=== PATIENT | male | born 1985 | race African-American/Black ===

== ENCOUNTER 2017-05-02 22:58 | Emergency (ER) | payer MEDICARE, SELFPAY ==
--- NOTE | 2017-05-03 00:02 | RAD ---
THREE VIEWS RIGHT FOOT: 05/02/17 HISTORY: Right foot pain for two months. FINDINGS: Lisfranc joint is normally aligned. There is no fracture, dislocation or other osseous abnormality i nvolving the right foot. IMPRESSION: No acute osseous abnormality. POS: [facility]
== END 2017-05-03 00:17 | disposition home or self-care (01) ==
LOC: ERS 22:58
DX: S93.601A Unspecified sprain of right foot, initial encounter (principal); Z20.2 Contact with and (suspected) exposure to infections with a predominantly sexual mode of transmission; J45.909 Unspecified asthma, uncomplicated; X58.XXXA Exposure to other specified factors, initial encounter
CPT/HCPCS: 87491; 87591

== ENCOUNTER 2018-01-17 16:41 | Emergency (ER) | payer MEDICARE, SELFPAY ==
[2018-01-17] MEDS ORDERED: Ketorolac Tromethamine 30 MG/ML VIAL ONE (17:04)
--- NOTE | 2018-01-17 17:45 | RAD ---
RADIOGRAPH RIGHT ANKLE 3 VIEWS: 01/17/18 HISTORY: 32-year-old male with chronic right ankle pain. FINDINGS: Ankle mortise is symmetrical. Talar dome is maintained. There is minimal asymmetric widening of the a nterior aspect of the ankle mortise as demonstrated on the lateral view. Talar dome is maintained. No high grade degenerative changes. There is pes planus. Two small, faint calcific densities project ov er the inferior aspects of the ankle mortise bilaterally, one on each side (medial and lateral), nons pecific. IMPRESSION: 1. Pes planus. 2. Slight asymmetrical widening of the anterior aspect of the tibiotalar joint. POS: [facility]
== END 2018-01-17 18:09 | disposition home or self-care (01) ==
LOC: ERS 16:41
DX: M25.471 Effusion, right ankle (principal); J45.909 Unspecified asthma, uncomplicated
CPT/HCPCS: 96372; J1885

== ENCOUNTER 2018-06-13 21:29 | Emergency (ER) | payer SELFPAY ==
[2018-06-13] MEDS ORDERED: Ibuprofen 800 MG TAB ONE (21:41)
--- NOTE | 2018-06-13 22:06 | RAD ---
RIGHT ANKLE: 06/13/18 Three views. INDICATIONS: Ankle pain. Mild soft tissue swelling. No fracture. No osseous abnormality identified. IMPRESSION: No evidence of acute osseous abnormality. POS: [facility]
== END 2018-06-13 22:27 | disposition home or self-care (01) ==
LOC: ERS 21:29
DX: M25.571 Pain in right ankle and joints of right foot (principal); X50.1XXA Overexertion from prolonged static or awkward postures, initial encounter

== ENCOUNTER 2018-07-10 16:35 | Emergency (ER) | payer SELFPAY ==
[2018-07-10] MEDS ORDERED: Adacel (T-DAP) 0.5 ML SYRINGE ONE (17:13)
[2018-07-10] MEDS ORDERED: Bacitracin Zinc 1 Packet ONE (17:13)
== END 2018-07-10 17:25 | disposition home or self-care (01) ==
LOC: ERS 16:35
DX: S61.411A Laceration without foreign body of right hand, initial encounter (principal); W26.0XXA Contact with knife, initial encounter
CPT/HCPCS: 90471; 90715

== ENCOUNTER 2018-09-28 16:39 | Emergency (ER) | payer SELFPAY ==
--- NOTE | 2018-09-28 17:18 | RAD ---
RIGHT ANKLE THREE VIEWS: 09/28/18 HISTORY: Right ankle pain. FINDINGS/IMPRESSION: Comparison made with exam of 06/13/18. No acute fracture or dislocation seen. The ankle mortise is maintained. The osseous densities inferio r to the medial malleolus and inferomedial to the lateral malleolus are stable. POS: [facility]
== END 2018-09-28 18:14 | disposition home or self-care (01) ==
LOC: ERS 16:39
DX: M25.572 Pain in left ankle and joints of left foot (principal); K08.89 Other specified disorders of teeth and supporting structures